=== PATIENT | female | born 1980 | race Caucasian/White ===

== ENCOUNTER → 2017-11-06 15:07 | Outpatient (CLI) | payer OTHER, SELFPAY ==
[2017-11-06 17:08] LABS: Free Thyroxine Index 3.1 ug/dL (5.93-13.13); Thyroid Stimulating Hormone 1.43 uIU/ml (0.358-3.740); Triiodothryronine (T3) Uptake 31 % (31-39)
[2017-11-08 07:18] LABS: Thyroid Peroxidase Antibodies 8 IU/mL (0-34)
[2017-11-09 06:31] LABS: Triiodothyronine (T3) Free 3.8 pg/mL (2.0-4.4)
== END ==
PROVIDERS: Family Provider Family Medicine; PCP Nurse Practitioner Family; Visit Provider Nurse Practitioner Obstetrics & Gynecology
DX: Z01.419 Encounter for gynecological examination (general) (routine) without abnormal findings (principal); R53.83 Other fatigue
CPT/HCPCS: 36415; 84436; 84443; 84479; 84481; 86376

== ENCOUNTER → 2017-12-08 12:53 | Outpatient (CLI) | payer OTHER, SELFPAY ==
--- NOTE | 2017-12-08 12:56 | XR_ITS ---
XR foot wt bearing LT 3V HISTORY: ITS.REASON: pain ORDERING PHYSICIAN: Mely Kelley DPM PATIENT AGE: 37 years COMPARISON: None FINDINGS: No fracture or dislocation. No lytic or blastic change. There is normal mineralization.. The joint spaces are well-preserved. No significant degenerative/arthritic changes. No erosive changes evident. IMPRESSION: Negative, no acute finding
--- NOTE | 2017-12-08 12:56 | XR_ITS ---
XR foot wt bearing RT 3V HISTORY: ITS.REASON: pain ORDERING PHYSICIAN: Mely Kelley DPM PATIENT AGE: 37 years COMPARISON: None FINDINGS: No fracture or dislocation. No lytic or blastic change. There is normal mineralization.. The joint spaces are well-preserved. No significant degenerative/arthritic changes. No erosive changes evident. There is an os navicularis as a normal variant IMPRESSION: Negative, no acute finding
== END ==
PROVIDERS: PCP Family Medicine; Visit Provider Podiatrist
DX: M79.671 Pain in right foot (principal); M79.672 Pain in left foot
CPT/HCPCS: 73630

== ENCOUNTER → 2019-05-09 14:04 | Outpatient (CLI) | payer OTHER, SELFPAY ==
--- NOTE | 2019-05-09 14:19 | XR_ITS ---
PROCEDURE: XR FOOT LT MIN 3V CLINICAL INDICATION: LT FOOT PAIN COMPARISON: FTR2 FOOT-RT-2 VIEWS from 10/21/2014 FTL2 FOOT-LT-2 VIEWS from 10/21/2014 FTWBL3 XR foot wt bearing LT 3V from 12/08/2017 FTWBR3 XR foot wt bearing RT 3V from 12/08/2017 FINDINGS: No fracture or dislocation. No lytic or blastic change. There is normal mineralization. The joint spaces are well-preserved. No significant degenerative/arthritic changes. No erosive changes evident. Other findings:None. IMPRESSION: No acute findings. Dictated by: Gilbert Merida MD 05/09/2019 14:38 Electronically signed by Gilbert Merida MD in [place] 05/09/2019 14:38
== END ==
PROVIDERS: PCP Nurse Practitioner Family; Visit Provider Nurse Practitioner Family
DX: M79.672 Pain in left foot (principal)
CPT/HCPCS: 73630

== ENCOUNTER → 2020-11-06 13:31 | Outpatient (CLI) | payer OTHER, SELFPAY ==
--- NOTE | 2020-11-06 13:36 | XR_ITS ---
PROCEDURE: XR KNEE RT 3V CLINICAL INDICATION: RT KNEE PAIN COMPARISON: CR KNEE3R KNEE-3 VIEWS-RT from 10/21/2014 CR KNEE3L KNEE-3 VIEWS-LT from 10/21/2014 FINDINGS: No fracture or dislocation. No lytic or blastic change. There is normal mineralization. Early osteophyte formation. Mild medial compartment joint space loss. No suprapatellar joint effusion. Soft tissues are unremarkable. IMPRESSION: Early degenerative changes. No acute fractures or dislocations. Dictated by: Claudia Kumar 11/06/2020 16:56 Claudia Kumar in [place] 11/06/2020 16:56
--- NOTE | 2020-11-06 13:36 | XR_ITS ---
PROCEDURE: XR KNEE LT 3V CLINICAL INDICATION: LT KNEE PAIN COMPARISON: CR KNEE3R KNEE-3 VIEWS-RT from 10/21/2014 CR KNEE3L KNEE-3 VIEWS-LT from 10/21/2014 FINDINGS: No fracture or dislocation. No lytic or blastic change. There is normal mineralization. The joint spaces are well-preserved. Early osteophyte formation is noted. No erosive changes evident. Other findings:None. IMPRESSION: Early osteophyte formation. No acute fractures or dislocations. Dictated by: Claudia Kumar 11/06/2020 16:55 Claudia Kumar in [place] 11/06/2020 16:55
== END ==
PROVIDERS: PCP Nurse Practitioner Family; Visit Provider Nurse Practitioner Family
DX: M25.562 Pain in left knee (principal); M25.561 Pain in right knee
CPT/HCPCS: 73562

== ENCOUNTER → 2021-02-11 09:05 | Outpatient (CLI) | payer OTHER, SELFPAY ==
--- NOTE | 2021-02-11 09:11 | XR_ITS ---
PROCEDURE: XR HIP LT 2-3V W/PELVIS CLINICAL INDICATION: LT HIP PAIN COMPARISON: No exams were available for comparison FINDINGS: No fracture or dislocation is evident. No significant degenerative change. No lytic or blastic change. Unremarkable soft tissues. There is a small sclerotic focus overlying the left ilium laterally and may be due to a bone island. IMPRESSION: No acute findings. Dictated by: Gilbert Merida MD 02/11/2021 11:25 Gilbert Merida MD in [place] 02/11/2021 11:25
== END ==
PROVIDERS: PCP Nurse Practitioner Family; Visit Provider Nurse Practitioner Family
DX: M25.552 Pain in left hip (principal)
CPT/HCPCS: 73502

== ENCOUNTER → 2021-03-12 07:58 | Outpatient (CLI) | payer OTHER, SELFPAY ==
--- NOTE | 2021-03-12 08:01 | MR_ITS ---
PROCEDURE: MR HIP LT WO CON CLINICAL INDICATION: LEFT HIP PAIN COMPARISON: CR XR HIP LT 2-3V W/PELVIS from 02/11/2021 TECHNIQUE: Routine multiplanar multi echo sequences are performed without gadolinium enhancement. FINDINGS: The femoral head has unremarkable signal intensity. No evidence of avascular necrosis. There is a small left hip joint effusion.. Small area of decreased T1 and T2 signal is present in the ischium posteriorly and may be due to an incidental bone island corresponding to sclerotic area on the radiograph. Increased T2 signal is present along the greater trochanteric region within the soft tissues and may be related to trochanteric bursitis. There is increased T2 signal surrounding the gluteus minimus tendon. Increased T2 signal is also present within the gluteus medius muscle at the level of the greater trochanter. IMPRESSION: 1. Small left hip joint effusion. 2. Increased T2 signal along the greater trochanteric region, around the insertion of the gluteus minimus tendon, and in the gluteus medius muscle at the level of the greater trochanter. These findings may be related trochanteric bursitis. Recent injection could have a similar appearance. Tenosynovitis of the gluteus minimus tendon is considered. The increased T2 signal in the gluteus medius muscle could be related to recent injection, underlying bursitis, or even muscle injury. Dictated by: Gilbert Merida MD 03/12/2021 12:36 Gilbert Merida MD in [place] 03/12/2021 12:36
== END ==
PROVIDERS: PCP Nurse Practitioner Family; Visit Provider Nurse Practitioner Family
DX: M25.552 Pain in left hip (principal)
CPT/HCPCS: 73721

== ENCOUNTER 2021-05-18 08:00 | Outpatient (RCR) | payer OTHER, SELFPAY | END 2021-05-18 08:05 | disposition home or self-care (01) | LOC: PT 08:00 | PROVIDERS: Visit Provider Nurse Practitioner Family | DX: M70.62 Trochanteric bursitis, left hip (principal); M25.452 Effusion, left hip | CPT/HCPCS: 20560; 97010; 97014; 97033; 97035; 97110; 97140; 97163; 97164; G0283 ==

== ENCOUNTER → 2021-07-10 13:18 | Outpatient (CLI) | payer OTHER, SELFPAY | PROVIDERS: Visit Provider Nurse Practitioner Family | DX: U07.1 COVID-19 (principal) | CPT/HCPCS: C9803; U0003; U0005 ==

== ENCOUNTER → 2022-02-01 10:03 | Outpatient (CLI) | payer OTHER, SELFPAY ==
--- NOTE | 2022-02-01 10:03 | US_ITS ---
FINAL REPORT CLINICAL HISTORY: fibroid uterus, heavy bleeding FINDINGS: Transvaginal sonographic images of the pelvis were obtained. The uterus measures 9.7 x 5.1 x 4.4 cm. The endometrium measures 1 cm, which is within normal limits. The uterus has a lobular contour consistent with fibroid uterus. There are no well-defined separate fibroids. The right ovary measures 2.5 cm in length and left ovary measures 2.9 cm in length. Normal blood flow seen to the ovaries. There is a 1.6 cm cyst in the right ovary. There is no evidence of free fluid. IMPRESSION: Lobular uterine contour consistent with fibroid uterus. 1.6 cm right ovarian cyst. Reviewed, Interpreted and Dictated by Jethro Smith III, MD Transcribed by Paulino Small Authenticated and [facility]
--- NOTE | 2022-02-01 10:03 | MM_ITS ---
PROCEDURE INFORMATION: Exam: MG Bilateral Screening 3D Mammography Exam date and time: 02/01/2022 10:03 AM Age: 41 years old Clinical indication: Screening examination TECHNIQUE: Imaging protocol: Bilateral Screening tomosynthesis and 2D mammography including computer-aided detection (CAD) when performed. COMPARISON: No relevant prior studies available. Baseline FINDINGS: MAMMOGRAPHY: Breast composition: There are scattered areas of fibroglandular density. Mass: None. Architectural distortion: None. Calcifications: No suspicious calcifications. Asymmetric density: None. Skin thickening: None. Axillary adenopathy: None. IMPRESSION: No mammographic evidence of malignancy. Annual screening is recommended unless otherwise clinically indicated. ASSESSMENT: BI-RADS Category 1: Negative
== END ==
LOC: RAD 10:03
PROVIDERS: PCP Nurse Practitioner Family; Visit Provider Nurse Practitioner Obstetrics & Gynecology
DX: Z12.31 Encounter for screening mammogram for malignant neoplasm of breast (principal); D25.9 Leiomyoma of uterus, unspecified; N92.0 Excessive and frequent menstruation with regular cycle
CPT/HCPCS: 76830; 77063; 77067

== ENCOUNTER → 2022-04-27 08:04 | Outpatient (CLI) | payer OTHER, SELFPAY ==
[2022-04-27 08:22] LABS: Basophils # 0.1 K/mm3 (0-0.2); Basophils % 0.8 % (0.1-2.0); Eosinophils # 0.1 K/mm3 (0.0-0.4); Eosinophils % 2.1 % (0.1-12.0); Hemoglobin 13.1 g/dL (12.2-16.2); Lymphocytes # 1.8 K/mm3 (0.7-4.5); Lymphocytes % 25.7 % (10-50); Mean Corpuscular HGB Conc 32.7 g/dL (31.8-35.4); Mean Corpuscular Hemoglobin 29.7 pg (27.0-31.2); Mean Corpuscular Volume 90.8 fl (81-99); Mean Platelet Volume 7.8 fl (7.4-10.4); Monocytes # 0.3 K/mm3 (0.1-1.0); Monocytes % 4.7 % (1.7-9.3); Neutrophils # 4.6 K/mm3 (1.8-7.8); Neutrophils % 66.7 % (37.0-80.0); Platelet Count 215 K/mm3 (142-424); Red Cell Distribution Width 13.1 % (11.5-17.5)
[2022-04-27 09:09] LABS: Alanine Aminotransferase 15 U/L (12-78); Albumin Level 4.4 g/dl (3.5-5.0); Albumin/Globulin Ratio 1.9 (1.1-1.8); Alkaline Phosphatase 81 U/L (38-126); Aspartate Amino Transferase 21 U/L (14-36); Bilirubin,Total 0.6 mg/dl (0.2-1.3); Blood Urea Nitrogen 13 mg/dl (7-17); Calcium 9.5 mg/dl (8.4-10.2); Carbon Dioxide 28 mmol/L (22.0-30.0); Chloride 103 mmol/L (98-107); Estimated Glomerular Filt Rate 137 ml/min (>60); GFR (African American) 165 ML/MIN (>60); Globulin 2.3 g/dL (1.3-3.2); Glucose 82 mg/dl (74-100); Sodium 140 mmol/L (136-145); Total Protein,Serum 6.7 g/dl (6.3-8.2)
[2022-04-27 09:31] LABS: HCG,Quantitative < 2 mIU/ml (0-5.42)
== END ==
LOC: LAB 08:05
PROVIDERS: PCP Nurse Practitioner Family; Visit Provider Nurse Practitioner Obstetrics & Gynecology
DX: R93.89 Abnormal findings on diagnostic imaging of other specified body structures (principal)
CPT/HCPCS: 36415; 80053; 84702; 85025

== ENCOUNTER 2022-04-29 06:08 | Day surgery (SDC) | payer OTHER, SELFPAY ==
[2022-04-26 12:11] VITALS: BMI 34.4
[2022-04-29] VITALS (10 sets, daily range): BP systolic 111–149; BP diastolic 62–100; PULSE 64–89; RESP 16–18; TEMP 36.3–37.1; O2SAT 93–97
--- NOTE | 2022-04-29 07:39 | EXP.ANES.CKL ---
[facility] Medical History Allergies Anxiety History of COVID-19 Lyme disease Surgical History History of section History of cholecystectomy History of tonsillectomy Family History Mother Lung cancer Family history of myocardial infarction Father Family history of myocardial infarction Social History (Updated 04/29/22 @ 06:38 by Juanita Hawk, ODALIS) Smoking Status: Never smoker alcohol intake: never substance use type: denies use current occupational status: employed Travel in the last 8 weeks: None household members: family housing: house [facility] Anesthesia Checklist Patient Identification Patient Identification: Arm Band Structural Data Admitted From: Home Planned Operative Procedure/s: Hysteroscopy, D&C, Novasure Ablation Consent for Planned Operative Procedure(s) Verified: Yes Verified Documents: Surgical Consent and History and Physical NPO Status Verified Time NPO: 00:00 Additional verifications Anesthesia Reactions: No Hx Blood Transfusions: No Blood Transfusion Reaction: No Airway Assessment C-Spine Mobility Assessed: Yes TMJ Mobility Assessed: Yes Dentition: Good Dentition Neurological Assessment Level of Consciousness: Awake and Alert Anesthesia Plan Anesthesia Risk discussed: Yes Anesthesia Plan: Verified ASA Class: II Anesthesia Type: General
--- NOTE | 2022-04-29 08:06 | EXP.ANES.I ---
[facility] Anesthesia Record Part I Anesthesia Record I Intake, IV Amount: 500 Estimated blood loss (mL): 25 Urine output (mL): 0 Blood Products used (#): none Blood Pressure: 149/100 SaO2: 93 Pulse Rate: 89 Respiratory Rate: 16 Temperature: 98.8 F Patient is:: Drowsy and Stable Stable to PACU at:: 08:05
--- NOTE | 2022-04-29 08:11 | P.OP_ITS ---
Date of procedure: 04/29/22 Pre-op Diagnosis:: Menorrhagia Post-op Diagnosis:: Menorrhagia Procedure performed:: Hysteroscopy, D&C, NovaSure ablation Surgeon:: Devin Trivedi MD POSITIVE PRINTER OPERATOR:: Gonzalo Estes Anesthesia: LMA Estimated blood loss (mL): 50 Clinical Note:: She is a 41-year-old lady who complains of extremely heavy periods. Ultrasound was essentially normal. After having discussed the risks and benefits we elected perform a hysteroscopy, D&C and endometrial ablation. Operative findings:: She had a normal-appearing endometrium. The endometrium sounded to 9 cm. The width was 4.5 cm. Operative note:: She was taken to the operating room where LMA anesthesia was found be adequate. She was prepped and draped in the normal sterile fashion in the lithotomy position. A weighted speculum was placed in the vagina and the anterior lip of the cervix was grasped with a tenaculum. The cervix was then dilated to approximately 6 mm. I then inserted a hysteroscope into the uterine cavity and the findings were as previously dictated. I then performed a gentle curettage with a medium curette. I then sounded the uterus and determine the length of the uterus. The length was 9 cm. I then inserted the NovaSure device and determine the width of the endometrial cavity. The endometrial cavity length was 6.5 cm and the width was 3.6 cm. This was placed into the NovaSure device. I then ran the device through its program. I further inspected the endometrial cavity and was found to be incompletely charted. There was very little becky. The endometrium really appeared as it had prior to the procedure. As result of this I elected to redo the endometrial ablation. The endometrium still appeared quite lush and pink. I placed another device within the endometrial cavity and the length was 6 cm. I then further manipulated device and was able to get the width to 4.8 cm. This was then placed into the NovaSure device and I ran the device through its program again. I once again inspected the endometrial cavity and it was found to be completely charred. I then injected 30 cc of 0.5% ropivacaine at the 3:00, 5:00, 7:00, and 9:00 positions of the cervix. She tolerated procedure well and was taken to the recovery room in excellent condition. All sponge and instrument counts were correct. The estimated blood loss was less than 50 cc. Condition: stable Disposition: PACU Specimens:: Endometrial curettings Complications:: None
--- NOTE | 2022-04-29 08:37 | PC.NURSE ---
0809-detailed report called to TomekaRN 0835-pt transported to post op via stretcher w/belgica rails up and left in care of ODALIS Grullon with bed locked in lowest position, vss, pt stable, additional bedside report given
--- NOTE | 2022-04-29 13:21 | P.PNANES_ITS ---
[facility] Anesthesia Record Part II Anesthesia Record Part II Discharge Time: 08:35 Destination: Surgical Day Care (OP Surgery) PACU nurse assessment reviewed?: Yes Patient Condition:: Good Anesthesia Complications:: None Swallowing reflex intact?: Yes Cyanosis?: No Blood Pressure: 128/89 Pulse Rate: 68 Temperature: 97.6 F Mental Status: Alert & Oriented Pain level:: 0 Nausea and/or vomitting:: None Intake, IV Amount: 0
== END 2022-04-29 09:05 | disposition home or self-care (01) ==
PROVIDERS: PCP Nurse Practitioner Family; Visit Provider Nurse Practitioner Obstetrics & Gynecology
PROC: 0U5B8ZZ Destruction of Endometrium, Via Natural or Artificial Opening Endoscopic (ICD-10-PCS; CPT 58563; principal; 2022-04-29 07:30)
DX: N92.0 Excessive and frequent menstruation with regular cycle (principal); R93.89 Abnormal findings on diagnostic imaging of other specified body structures; Z79.899 Other long term (current) drug therapy
CPT/HCPCS: 58563; 96374; J2405

== ENCOUNTER → 2022-05-03 07:17 | Outpatient (CLI) | payer SELFPAY ==
--- NOTE | 2022-05-03 07:17 | CT_ITS ---
FINAL REPORT CLINICAL HISTORY: . screening for heart disease FINDINGS: CT CORONARY CALCIUM SCORE W/O TECHNIQUE: Thin-section axial images were obtained through the heart and coronary arteries per CT coronary calcium score protocol. This study was performed with techniques to keep radiation doses as low as reasonably achievable (ALARA). Individualized dose reduction techniques using automated exposure control or adjustment of mA and/or kV according to the patient's size were employed. FINDINGS: On the axial images, there is no significant calcification. This gives a coronary artery calcium score of 0.0 based on the Agatston scale. This coronary artery calcium score places the patient within the 0 percentile based on age and gender. The heart size is normal. There is no pleural or pericardial effusion. Limited evaluation of the lungs reveal a 4 mm noncalcified nodule in the posterior left upper lobe consistent with a Fleischner 1. IMPRESSION: 0 percentile.. Reviewed, Interpreted and Dictated by Jax Dove MD Transcribed by Paulino Small Authenticated and . [facility]
== END ==
PROVIDERS: PCP Nurse Practitioner Family; Visit Provider Physician Assistant
DX: Z13.6 Encounter for screening for cardiovascular disorders (principal); Z82.49 Family history of ischemic heart disease and other diseases of the circulatory system
CPT/HCPCS: 75571

== ENCOUNTER → 2022-05-13 13:58 | Outpatient (CLI) | payer OTHER, SELFPAY | LOC: RT 13:59 | PROVIDERS: PCP Nurse Practitioner Family; Visit Provider Physician Assistant | DX: E66.9 Obesity, unspecified (principal); Z82.49 Family history of ischemic heart disease and other diseases of the circulatory system; Z86.79 Personal history of other diseases of the circulatory system; Z68.34 Body mass index [BMI] 34.0-34.9, adult | CPT/HCPCS: 93306 ==

== ENCOUNTER → 2022-05-27 14:08 | Outpatient (CLI) | payer OTHER, SELFPAY ==
--- NOTE | 2022-05-27 | CA_ITS ---
APPROVED REPORT Exam: Exercise Treadmill Technologist: Liz Santiago, Ht: 5 ft 4 in Wt: 201 lbs BSA: 1.96 m2 HR: 72 bpm BP: 129/83 mmHg Rhythm: NSR Medical History Medications: Escitalopram,,,,, Vit D3,,,,, Oxalate,,,,, Allergies: No known drug allergies Cardiac Risk Factors: FHX of CAD Stress Test Details Test: [place], Exercise stress testing was performed using a modified [place]ell protocol. HR Resting HR: 73 bpm Max Heart Rate (APMHR): 180.440263 bpm Max HR Achieved: 189 bpm Target HR (85% APMHR): 153.005722 bpm % of APMHR: 105.00 Recovery HR: 105 bpm BP Resting BP: 129/83 mmHg Max BP: 156/90 mmHg Recovery BP: 152.0/74.0 mmHg ECG Resting ECG: NSR Clinical Reason for Termination: Dyspnea Leg Pain Exercise duration: 07:02 min Highest Stage Achieved: Exercise capacity: 10.1 METs Stress ECG Conclusion PT WALKED 7 MINUTES 10.1 METS MAX HR: 189 MAX B/P: 156/90 METS:10.1 TEST STOPPED DUE TO: SOA, LEG ACHES NO CP <1.[address] SEGMENT CHANGES NEGATIVE STRESS. SEE ECHO Test Summary REST . . . . . . . Sitting REST 05:29 0.0 1.2 73 . 129/ 83 . . Stage 1 01:00 10.0 1.7 104 . . . . Stage 1 02:00 10.0 1.7 119 . 140/ 80 . . Stage 1 03:00 10.0 1.7 122 . 140/ 80 . . Stage 2 01:00 12.0 2.5 144 . . . . Stage 2 02:00 12.0 2.5 157 . . . . Stage 2 03:00 12.0 2.5 172 . 156/ 90 . . Stage 3 01:00 14.0 3.1 188 . . . . Stage 3 01:02 14.0 0.0 188 . . . Stop exercise at 07:02 RECOVERY 01:00 0.0 0.0 139 . . . . RECOVERY 02:00 0.0 0.0 108 . . . . RECOVERY 03:00 0.0 0.0 108 . . . . RECOVERY 04:00 0.0 0.0 103 . 152/ 74 . . RECOVERY 05:00 0.0 0.0 93 . 152/ 74 . . RECOVERY 06:00 0.0 0.0 97 . 152/ 74 . . RECOVERY 07:00 0.0 0.0 0 . 152/ 74 . . RECOVERY 07:54 0.0 0.0 0 . 152/ 74 . . Electronically signed by : Jian Carrillo MD 05/27/2022 15:47:35
--- NOTE | 2022-05-27 14:13 | CA_ITS ---
APPROVED REPORT EXAM: Comprehensive 2D, Doppler, and color-flow Echocardiogram Drilling Engineering Manager: Lynne Linares RVT Ht: 5 ft 4 in Wt: 202lbs BSA: 1.96 BP: 132/86 mmHg Indications: MURMUR,FAMILY HX HD Stress Test Details HR Max Heart Rate (APMHR): 180.440137 bpm Target HR (85% APMHR): 153.100744 bpm BP ECG Conclusion 1. The EKG portion of the exercise stress echo is negative for ischemia, patient has good exercise capacity of 10.1 METs of workload on treadmill, the blood pressure response to exercise was adequate, there was no exercise-induced chest discomfort. 2. Normal left ventricular size and function with no regional wall motion abnormality at rest. 3. With exercise there is increase in contractility of all the segments of the myocardium with hyperdynamic left ventricular systolic response, no obvious regional wall motion abnormality to suggest underlying ischemic heart disease. 4. Normal exercise stress echo. Electronically signed by : Jian Carrillo MD 05/27/2022 15:48:47
== END ==
LOC: RT 14:09
PROVIDERS: PCP Nurse Practitioner Family; Visit Provider Physician Assistant
DX: Z82.49 Family history of ischemic heart disease and other diseases of the circulatory system (principal); Z86.79 Personal history of other diseases of the circulatory system; E66.9 Obesity, unspecified; Z68.35 Body mass index [BMI] 35.0-35.9, adult
CPT/HCPCS: 93017; 93350

== ENCOUNTER → 2023-04-07 14:05 | Outpatient (CLI) | payer OTHER, SELFPAY ==
--- NOTE | 2023-04-07 14:06 | US_ITS ---
PROCEDURE: US TRANSVAGINAL CLINICAL INDICATION: left sided pelvic pain COMPARISON: US US TRANSVAGINAL from 02/01/2022 FINDINGS: Transabdominal sonographic images of the pelvis were obtained. UTERUS: 9.9 cm x 6.2 cmx 4.9 cm, post ablation changes and the endometrium not well visualized. There is a 7.5 mm x 7.5 mm cystic area in the endometrial cavity. A scar is seen. There are multiple small nabothian cysts in the cervix. LEFT OVARY: 3.3 cmx1.8 cmx2.5cm with a volume of 7.4ml. There is a 9 mm follicle in the left ovary. RIGHT OVARY: 4.1 cm x 3.1 cmx2.3 cm with a volume of 15.5ml. There are two prominent follicles. Follicle 1. Measures 1.5 cm x 1.7 cm x 2.3 cm. Follicle 2. Measures 1.8 cm x 1.6 cm x 2.2 cm. Both ovaries are seen and appear normal. Doppler flow to both ovaries are seen. There is no fluid in the cul-de-sac. IMPRESSION: 1. Anteverted uterus slightly enlarged in size. Post ablation changes are seen. 2. Both ovaries are seen and appear normal. There are prominent follicles on each ovary. 3. No fluid in the cul-de-sac. Dictated by: Devin Trivedi MD 04/08/2023 11:16 Devin Trivedi MD in [place] 04/08/2023 11:16
== END ==
LOC: RAD 14:06
PROVIDERS: PCP Nurse Practitioner Family; Visit Provider Nurse Practitioner Family
DX: R10.2 Pelvic and perineal pain (principal)
CPT/HCPCS: 76830

== ENCOUNTER → 2023-05-26 13:27 | Outpatient (CLI) | payer OTHER, SELFPAY ==
--- NOTE | 2023-05-26 13:28 | MM_ITS ---
PROCEDURE INFORMATION: Exam: MG Bilateral Screening 3D Mammography Exam date and time: 05/26/2023 1:26 PM Age: 42 years old Clinical indication: Screening mammogram TECHNIQUE: Imaging protocol: Bilateral Screening tomosynthesis and 2D mammography including computer-aided detection (CAD) when performed. COMPARISON: MG MM DIG SCREENING MAMM BI W/CAD 02/01/2022 10:03 AM FINDINGS: MAMMOGRAPHY: Breast composition: There are scattered areas of fibroglandular density. Mass: None. Architectural distortion: No new or suspicious architectural distortion. Calcifications: No new or suspicious calcifications are present Asymmetric density: No new or suspicious asymmetric density is present Skin thickening: None. Axillary adenopathy: None. IMPRESSION: No mammographic evidence of malignancy. Recommend annual screening mammography unless otherwise clinically indicated. ASSESSMENT: BI-RADS category 1: Negative
== END ==
PROVIDERS: PCP Nurse Practitioner Family; Visit Provider Obstetrics & Gynecology
DX: Z12.31 Encounter for screening mammogram for malignant neoplasm of breast (principal)
CPT/HCPCS: 77063; 77067

== ENCOUNTER 2024-03-04 14:53 | Outpatient (CLI) | payer OTHER, SELFPAY ==
[2024-03-04 13:52] LABS: Basophils # 0.1 K/mm3 (0-0.2); Basophils % 0.8 % (0.1-2.0); Eosinophils # 0.1 K/mm3 (0.0-0.4); Eosinophils % 1.6 % (0.1-12.0); Hematocrit 44.9 % (37.0-47.0); Lymphocytes % 30.7 % (10-50); Mean Corpuscular HGB Conc 31.1 g/dL (31.8-35.4); Mean Corpuscular Hemoglobin 29.5 pg (27.0-31.2); Mean Corpuscular Volume 94.8 fl (81-99); Mean Platelet Volume 8.5 fl (7.4-10.4); Monocytes # 0.3 K/mm3 (0.1-1.0); Monocytes % 5.2 % (1.7-9.3); Neutrophils % 61.7 % (37.0-80.0); Platelet Count 226 K/mm3 (142-424); Red Blood Count 4.73 M/mm3 (4.20-5.40); Red Cell Distribution Width 13.4 % (11.5-17.5); White Blood Count 6.5 K/mm3 (4.8-10.8)
[2024-03-04 15:15] LABS: T4 (Thyroxine) 10.7 ug/dl (5.53-11.0)
[2024-03-04 15:29] LABS: Thyroid Stimulating Hormone 0.68 uIU/mL (0.465-4.68)
[2024-03-04 15:48] LABS: Vitamin B12 680 pg/mL (239-931)
[2024-03-04 18:05] LABS: Ferritin 34.7 ng/ml (6.24-137)
[2024-03-05 11:13] LABS: C-Peptide 2.6 ng/mL (1.1-4.4); FSH 3.8 mIU/mL (.); Insulin Level Total 11.6 uIU/mL (2.6-24.9); LH 5.2 mIU/mL (.); Progesterone 10.2 ng/mL (.); Thyroid Peroxidase Antibodies <9 IU/mL (0-34); Triiodothyronine (T3) Free 3.1 pg/mL (2.0-4.4)
[2024-03-05 17:10] LABS: Thyroglobulin Level <1.0 IU/mL (0.0-0.9)
[2024-03-10 18:42] LABS: Free Testosterone (Direct) < 0.2 pg/mL (0.0-4.2); Testosterone, Total, LC/MS 14.9 ng/dL (.)
[2024-03-14 16:07] LABS: Antinuclear Antibodies (ANA) Negative
== END 2024-03-04 23:59 | disposition home or self-care (01) ==
LOC: LAB.DROPOF 14:53
PROVIDERS: PCP Nurse Practitioner Family; Visit Provider Nurse Practitioner Family
DX: N92.6 Irregular menstruation, unspecified (principal); R53.83 Other fatigue; R63.5 Abnormal weight gain; D64.9 Anemia, unspecified; R79.89 Other specified abnormal findings of blood chemistry; Z68.35 Body mass index [BMI] 35.0-35.9, adult
CPT/HCPCS: 84402; 84403; 82306; 82607; 82670; 82728; 83001; 83002; 83525; 84144; 84436; 84443; 84481; 84681; 85025; 86038; 86225; 86235; 86376; 86800

== ENCOUNTER 2024-03-06 11:34 | Outpatient (CLI) | payer OTHER, SELFPAY ==
[2024-03-06 17:52] LABS: Adenovirus,PCR Not Detected (NotDetected); Bordetella Pertussis Not Detected (NotDetected); Chlamydophila Pneumoniae, PCR Not Detected (NotDetected); Coronavirus 19, PCR Not Detected (NotDetected); Coronavirus 229E Not Detected (NotDetected); Coronavirus NL63 Not Detected (NotDetected); Coronavirus OC43 Not Detected (NotDetected); Coronovirus HKU1,PCR Not Detected (NotDetected); Human Metapneumovirus Not Detected (NotDetected); Influenza A, PCR Not Detected (NotDetected); Influenza AH1, 2009 Not Detected (NotDetected); Influenza AH1, PCR Not Detected (NotDetected); Influenza AH3,PCR Not Detected (NotDetected); Influenza B, PCR Not Detected (NotDetected); Mycoplasma Pneumoniae, PCR Not Detected (NotDetected); Parainfluenza 1, PCR Not Detected (NotDetected); Parainfluenza 2, PCR Not Detected (NotDetected); Parainfluenza 3, PCR Not Detected (NotDetected); Parainfluenza 4, PCR Not Detected (NotDetected); Respiratory Syncytial Virus Not Detected (NotDetected); Rhinovirus/Enterovirus Not Detected (NotDetected)
== END 2024-03-06 23:59 | disposition home or self-care (01) ==
LOC: LAB.DROPOF 03-07 09:23
PROVIDERS: PCP Nurse Practitioner Family; Visit Provider Nurse Practitioner Family
DX: J02.9 Acute pharyngitis, unspecified (principal); J06.9 Acute upper respiratory infection, unspecified
CPT/HCPCS: 87070; 87265; 87486; 87581; 87632; 87635

== ENCOUNTER 2024-03-22 08:49 | Outpatient (CLI) | payer OTHER, SELFPAY ==
[2024-03-22 17:10] LABS: Influenza A, PCR Not Detected (NotDetected); Influenza B, PCR Not Detected (NotDetected)
[2024-03-22 18:09] LABS: Coronavirus 19, PCR Detected (NotDetected)
== END 2024-03-22 23:59 | disposition home or self-care (01) ==
LOC: LAB.DROPOF 03-25 08:50
PROVIDERS: PCP Student in an Organized Health Care Education/Training Program; Visit Provider Student in an Organized Health Care Education/Training Program
DX: U07.1 COVID-19 (principal)
CPT/HCPCS: 87636

== ENCOUNTER 2024-06-17 10:09 | Outpatient (CLI) | payer OTHER, SELFPAY ==
[2024-06-17 18:58] LABS: Coronavirus 19, PCR Not Detected (NotDetected); Influenza A, PCR Not Detected (NotDetected); Influenza B, PCR Not Detected (NotDetected)
== END 2024-06-17 23:59 | disposition home or self-care (01) ==
LOC: LAB.DROPOF 06-18 10:09
PROVIDERS: PCP Student in an Organized Health Care Education/Training Program; Visit Provider Student in an Organized Health Care Education/Training Program
DX: R50.9 Fever, unspecified (principal); R05.9 Cough, unspecified
CPT/HCPCS: 87636

== ENCOUNTER 2024-10-08 08:09 | Outpatient (CLI) | payer OTHER, SELFPAY ==
--- NOTE | 2024-10-08 08:30 | MM_ITS ---
PROCEDURE INFORMATION: Exam: MG Bilateral Screening 3D Mammography Exam date and time: 10/08/2024 8:35 AM Age: 44 years old Clinical indication: Screening examination. TECHNIQUE: Imaging protocol: Bilateral Screening tomosynthesis and 2D mammography including computer-aided detection (CAD) when performed. COMPARISON: 1. MG MM DIG SCREENING MAMM BI W/CAD 05/26/2023 1:26 PM 2. MG MM DIG SCREENING MAMM BI W/CAD 02/01/2022 10:03 AM FINDINGS: MAMMOGRAPHY: Breast composition: There are scattered areas of fibroglandular density. Mass: None. Architectural distortion: None. Calcifications: No suspicious calcifications. Asymmetric density: None. Skin thickening: None. Axillary adenopathy: None. IMPRESSION: No mammographic evidence of malignancy. Annual screening is recommended unless otherwise clinically indicated. ASSESSMENT: BI-RADS Category 1: Negative.
== END 2024-10-08 23:59 | disposition home or self-care (01) ==
LOC: RAD 08:10
PROVIDERS: PCP Nurse Practitioner Family; Visit Provider Obstetrics & Gynecology
DX: Z12.31 Encounter for screening mammogram for malignant neoplasm of breast (principal)
CPT/HCPCS: 77063; 77067

== ENCOUNTER 2024-11-10 09:47 | Emergency (ER) | payer OTHER, SELFPAY ==
--- NOTE | 2024-11-10 10:09 | ECG_ITS ---
APPROVED REPORT Exam: Resting ECG HR:63 bpm ECG Measurements Heart Rate 63 AXES PA 152 P -24 QRSd 80 QRS 58 QT 369 T 52 QTc 375 Conclusion SINUS RHYTHM LOW QRS VOLTAGE IN PRECORDIAL LEADS [QRS DEFLECTION < 1.0 mV IN CHEST LEADS] BORDERLINE ECG UNCONFIRMED REPORT Electronically signed by : Joseph Zhao, 11/10/2024 16:04:42
[2024-11-10 10:12] VITALS: BP 154/88; PULSE 64; RESP 18; TEMP 37.1; O2SAT 98; BMI 34.3
[2024-11-10 10:46] VITALS: BP 148/91; PULSE 71; RESP 15; O2SAT 98
--- NOTE | 2024-11-10 11:11 | HMH.EDGENADL ---
Discharge Plan Disposition Patient Disposition: Home, Self-Care Prescriptions Prescriptions: New cyclobenzaprine 10 mg tablet 10 mg PO TID PRN (Reason: muscle spasm) 5 Days Qty: 15 0RF lidocaine 4 % adhesive patch,medicated 1 patch topical DAILY Qty: 5 0RF Rx Instructions: may leave on for up to 12 hrs naproxen 500 mg tablet 500 mg PO BID PRN (Reason: pain) 7 Days Qty: 14 0RF No Action benzonatate 100 mg capsule 100 mg PO BID PRN (Reason: cough) Qty: 20 0RF Referrals Follow up/Referrals: Randi Sun APRN [Primary Care Provider] - See instructions Activity Restrictions/Add. Instructions Additional Instructions/Restrictions: As discussed your symptoms are not consistent with an acute cardiopulmonary emergency but if you develop any shortness of breath elevated heart rate high fevers or other concerns please return to the emergency department. Working diagnosis is a paraspinal muscular strain likely secondary to your recent shoulder/back workout. Please return with any significant worsening of your symptoms. Clinical Impressions Clinical Impression: Strain of thoracic paraspinal muscles excluding T1 and T2 levels Print Language Print Language: Yoruba Discharge ED Provider: Yanique Zhao General Adult HPI General Chief complaint: Extremity Injury, Upper Stated complaint: Pain L shouler, no accident, x 3 days Time Seen by Provider: 11/10/24 10:55 Mode of Arrival: Ambulatory Source of Information: Patient Description of Symptoms (Recalled from ER Triage Doc. by RN): reports left shoulder pain. states she feels like something is pulling on her shoulder. worked out on monday. denies other possible injury History of Present Illness HPI narrative: 44-year-old female presents with what she describes as left shoulder discomfort. When asked to further articulate the location of her symptoms she states that it is just above and medial to her left shoulder blade. She recently started going back to the gym and was doing low rows as well as shoulder exercises on Monday symptoms began a few days later. Worse with movement touch she did feel some improvement with the massage. She states she has a pulling sensation in her left upper extremity. Denies any burning or [id number] type sensation denies any shortness of breath denies any chest pain or exertional symptoms. No lower extremity swelling hemoptysis etc. No history of DVT or PE she is not on any contraceptives. Related Data Previous Rx's ?Medication ?Instructions ?Recorded benzonatate 100 mg capsule 100 mg PO BID PRN cough #20 caps 06/17/24 cyclobenzaprine 10 mg tablet 10 mg PO TID PRN muscle spasm 5 11/10/24 days #15 tabs lidocaine 4 % topical patch 1 patch topical DAILY #5 ea 11/10/24 naproxen 500 mg tablet 500 mg PO BID PRN pain 7 days #14 11/10/24 tabs Allergies Allergy/AdvReac Type Severity Reaction Status Date / Time No Known Allergies Allergy Verified 06/17/24 08:43 [facility] Disclaimer: The information contained in this section may have been updated after the patient was seen, as this information can be updated by other users. Medical History History of COVID-19 Anxiety Lyme disease Allergies Surgical History H/O tubal ligation History of hysteroscopy S/P dilatation and curettage History of tonsillectomy History of cholecystectomy History of section Family History Mother Lung cancer Family history of myocardial infarction Father Family history of myocardial infarction Social History Smoking Status: Never smoker alcohol intake: never substance use type: denies use current occupational status: employed Travel in the last 8 weeks?: None household members: family housing: house Have you lived/traveled outside [place] in past 30 days?: No Contact w/someone who lives/traveled outside [place] past 30 days?: No Exposure to someone with infectious disease in past 14 days?: No Do you have a fever (greater than 100.4 F or 38 C)?: No Have you tested positive for COVID-19?: No Exposed to someone with COVID-19 in past 14 days?: No Do you have a sore throat?: No Do you have a cough?: No Do you have any weakness?: No Do you have any diarrhea?: No Are you experiencing any unusual bleeding?: No Do you have any muscle aches/pain?: Yes Do you have any abdominal pain?: No Are you experiencing loss of taste or smell?: No Other Medical History Have you received the Flu Vaccine for this season: No Have you received the Pneumonia Vaccine: No ROS Obtained: Yes All systems reviewed & no additional complaints except as documented Physical Exam General General appearance: alert and in no apparent distress Respiratory Respiratory exam: Present normal lung sounds bilaterally Cardiovascular Cardiovascular exam: Present regular rate and normal rhythm Back Exam Back 1 view image: 1. Tenderness to palpation neurovascular exam is normal cardiopulmonary exam is normal in this region no skin change Neurological Exam Neurological exam: Present alert and oriented X3 Medical Decision Making Medical Records Screening: Per USPSTF and CDC recommendations, given the prevalence of disease in our region, it is our hospital?s policy to screen for HIV and viral Hepatitis for all patients aged 18 and over and those with ongoing risk factors. Da Inquiry Pt receiving controlled substance: No Vital Signs: 11/10/24 10:12 11/10/24 10:46 Temperature 98.8 F Temperature Source Oral Pulse Rate 71 Pulse Rate [Right] 64 Respiratory Rate 18 15 Blood Pressure 148/91 H Blood Pressure [Right Arm] 154/88 H Blood Pressure Mean [Right Arm] 110 02 Sat by Pulse Oximetry 98 98 Oxygen Delivery Method Room Air Room Air Orders (Tests/Meds): ED MEDICATIONS Generic Name Dose Route Start Last Admin Trade Name Freq PRN Reason Stop Dose Admin Cyclobenzaprine HCl 10 mg 11/10/24 11:07 Cyclobenzaprine 10mg Tablet PO 11/10/24 11:08 ONCE ONE Ketorolac Tromethamine 30 mg 11/10/24 11:07 Ketorolac 30mg/Ml Vial IM 11/10/24 11:08 ONCE ONE Lidocaine 1 each 11/10/24 11:07 Lidocaine 5% Transdermal Patch TD 11/10/24 11:08 ONCE ONE ORDERS Category Date Time Status HIV Combo Stat Lab 11/10/24 10:15 Ordered Hepatitis C Ab Qual. W/ RFX Stat Lab 11/10/24 10:15 Ordered Medical Decision Narrative: 44-year-old above history and physical normal neurovascular and cardiovascular exam. She is PERC negative this is not consistent with a pulmonary embolism. She has no acute cardiopulmonary symptoms namely any exertional symptoms to warrant any further workup from that standpoint she has a normal bilateral lower extremity exam I do not suspect given the symptoms that she is having that this is an aortic dissection etc. She had symptoms that began after recent reinitiation of working out including low rows and shoulder workouts which certainly could explain the localization of her symptoms. Symptoms are worse with movement and touch further suggesting that this is musculoskeletal in nature. I did discuss with her her concerns about a possible pulmonary embolism as she was looking this up online and discussed with her the pulmonary embolism rule out criteria I did offer her a workup but told her that it is really unlikely with her symptoms that that is the case. We shared decision-making we opted not to pursue any further evaluation but I did give her return precautions including shortness of breath pleuritic chest pain fevers elevated heart rate etc. Symptomatic medications have been prescribed to her here as well as to go home with and she was discharged in stable condition with strict return precautions emphasized. Working diagnosis musculoskeletal strain. Critical Care Critical Care Time Critical Care Time: No
[2024-11-10] MEDS: CYCLOBENZAPRINE 10MG TABLET 10 MG PO (11:23)
[2024-11-10] MEDS: LIDOCAINE 5% TRANSDERMAL PATCH 1 EACH TD (11:24)
[2024-11-10] MEDS: KETOROLAC 30MG/ML VIAL 30 MG IM (11:24)
[2024-11-10 11:30] VITALS: BP 148/79; PULSE 80; RESP 20; TEMP 36.8; O2SAT 98
== END 2024-11-10 11:31 | disposition home or self-care (01) ==
PROVIDERS: Emergency Provider Student in an Organized Health Care Education/Training Program; PCP Nurse Practitioner Family
DX: S29.012A Strain of muscle and tendon of back wall of thorax, initial encounter (principal); M25.512 Pain in left shoulder; X50.0XXA Overexertion from strenuous movement or load, initial encounter
CPT/HCPCS: 93005; 96372; 99283; J1885

== ENCOUNTER 2024-11-13 08:09 | Outpatient (CLI) | payer OTHER, SELFPAY ==
--- NOTE | 2024-11-13 08:13 | XR_ITS ---
FINAL REPORT CLINICAL HISTORY: Left posterior shoulder pain COMPARISON: None FINDINGS: LEFT SHOULDER Three views of the left shoulder were obtained. There is no acute fracture or dislocation. Visualized joint spaces are normally aligned. Soft tissues are unremarkable. IMPRESSION: No acute bony abnormality. Reviewed, Interpreted and Dictated by Chava Forrester MD Transcribed by Sydney Oseguera Authenticated and [facility]
--- NOTE | 2024-11-13 08:13 | XR_ITS ---
FINAL REPORT CLINICAL HISTORY: Left posterior shoulder pain COMPARISON: None FINDINGS: Three views of the thoracic spine were obtained. There is no fracture present. There is no vertebral anomaly. There are no significant degenerative changes. There is minimal S-shaped scoliosis. Dextroscoliosis of the upper thoracic spine measures 8 degrees. IMPRESSION: Minimal scoliosis. Reviewed, Interpreted and Dictated by Chava Forrester MD Transcribed by Sydney Oseguera Authenticated and [facility]
== END 2024-11-13 23:59 | disposition home or self-care (01) ==
LOC: RAD 08:11
PROVIDERS: PCP Nurse Practitioner Family; Visit Provider Nurse Practitioner Family
DX: M41.84 Other forms of scoliosis, thoracic region (principal); M25.512 Pain in left shoulder; S29.012A Strain of muscle and tendon of back wall of thorax, initial encounter
CPT/HCPCS: 72072; 73030

== ENCOUNTER → 2024-11-26 08:43 | Outpatient (RCR) | payer OTHER, SELFPAY ==
--- NOTE | 2024-11-27 09:17 | HMH.OTOPEV ---
OT Inpatient Evaluation Rehab OT Outpatient Eval Start: 11/26/24 09:20 Freq: Status: Active Protocol: Document 11/26/24 09:21 JIA (Rec: 11/26/24 13:14 JIA [id number]) E-signed By Mercedes Tellez, OT Outpatient Therapy Subjective History Subjective History Pt presents as a pleasant 44 year old female referred to occupational therapy for skilled evaluation due to shoulder and neck pain. Upon OT arrival to room, pt was holding LUE up with RUE and stated she was trying to relieve pain. She frequently supported neck with RUE t/ o session. Pt reports overall functional skills have been negatively impacted by her neck and L shoulder pain. She comments, I know this is all coming from my neck and my chiropractor agrees. Pt identified her date of onset being approximately 3 weeks ago. She awoke with severe pain in upper chest/back. She went to work and pain continued to worsen. Pt went to [facility] ER where an EKG was performed. No other imaging completed at that time. She was prescribed a muscle relaxer and Naproxen, as well as a Toradol injection, which did not reduce pain. The following day she saw her PCP and was put on steroids, again with no relief. X-Ray negative. She was seen by chiropractor approximately one week later and was told cervical problems were causing her pain. Pt states that PLOF was totally independent with all activities. She currently has stiffness and decreased ROM in cervical region upon clinical observation and UE AROM noted to be WNL. Pt is right hand dominant. 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 She uses RUE to perform tasks when possible and has increased pain when rotating and extending neck. New diagnosis of No cancer in past 12 months? Chief Complaint Pain,Spasms,Stiff,Gives out/Unstable,Paresthesia, Weakness,Decreased Route Jumper Strength Symptom Type Ache,Dull,Burning,Numbness,Tingling,Shooting Symptoms Relieved By Heat Symptoms Aggravated Bending/Stooping,Physical Activity,Lifting By Prior Functional None Limitations Current Functional Reaching,Lifting,Housework,Desk Work/Reading,Driving, Limitations Sleeping,Recreation Activity,Bending/Stooping Level of pain today 6 (0-10) Pain scale - at its 6 best (0-10) Pain scale - at its 9 worst (0-10) Shoulder/Elbow Eval Shoulder Objective Measurements Shoulder ROM Left Shoulder ROM Pain Limitations Shoulder Abduction 170 Active Range of Motion (degrees) Shoulder Flexion 172 Active Range of Motion (degrees) Query Text: Shoulder External 95 Rotation Active Range of Motion ( degrees) Shoulder Internal 82 Rotation Active Range of Motion ( degrees) Shoulder MMT Shoulder Abduction 4- Good- Strength Grade Shoulder Flexion 4 Good Strength Grade Shoulder Horizontal 4- Good- Abduction Strength Grade Shoulder Horizontal 4 Good Adduction Strength Grade Shoulder External 4- Good- Rotation Strength Grade Shoulder Internal 4 Good Rotation Strength Grade Elbow Objective Measurements QuickDASH Activities Please rate your ability to do the following activities in the last week by selecting the number below the appropriate response. 1. Open a tight or No difficulty new jar. 2. Do heavy Mild difficulty crusher feeder (e. g., wash bailon, floors). 3. Carry a shopping No difficulty bag or briefcase. 4. Wash your back. Mild difficulty 5. Use a knife to No difficulty cut food. 6. Recreational Mild difficulty activities in which you take some force or impact through your arm, shoulder, or hand (e.g., golf, hammering, tennis, etc.). 7. During the past Not at all week, to what extent has your arm, shoulder or hand problem interfered with your normal social activities with family, friends , neighbors or groups? 8. During the past Slightly limited week, were you limited in your work or other regular daily activites as a result of your arm, shoulder or hand problem? 9. Arm, shoulder or Mild hand pain. 10. Tingling (pins None and needles) in your arm, shoulder or hand. 11. During the past Mild difficulty week, how much difficulty have you had sleeping because of the pain in your arm, shoulder or hand? Quick DASH 17 OT Outpatient Assessment Impairments Problems/Impairments Impaired Strength,Impaired Endurance,Impaired Lifting, Impaired Household Care,Impaired Work Activities, Impaired Self Care/Self Management Prognosis Rehab Potential Innapropriate for Skilled Therapy Comment Recommend pt be referred to PT for cervical evaluation. Clinical Impression Consistent with No Diagnosis Outpatient Therapy Plan of Care Addendums This patient is a No candidate for social or vocational rehab ? Patient/Guardian Yes verbally acknowledges understanding of treatment program and consents to further treatment? Patient/Guardian Yes verbally acknowledges understanding of diagnosis, prognosis and goals for treatment? Eval Complexity OT Charge [id number] - Moderate Complexity PHYSICIAN CERTIFICATION: I certify the specified therapy services for Anna Kruegere are required, authorized, and reviewed every 30 days.
--- NOTE | 2024-11-27 10:20 | HMH.OTOPEV ---
OT Inpatient Evaluation Rehab OT Outpatient Eval Start: 11/26/24 09:20 Freq: Status: Active Protocol: Document 11/26/24 09:21 JIA (Rec: 11/26/24 13:14 JIA [id number]) E-signed By Mercedes Tellez, OT Outpatient Therapy Subjective History Subjective History Pt presents as a pleasant 44 year old female referred to occupational therapy for skilled evaluation due to shoulder and neck pain. Upon OT arrival to room, pt was holding LUE up with RUE and stated she was trying to relieve pain. She frequently supported neck with RUE t/ o session. Pt reports overall functional skills have been negatively impacted by her neck and L shoulder pain. She comments, I know this is all coming from my neck and my chiropractor agrees. Pt identified her date of onset being approximately 3 weeks ago. She awoke with severe pain in upper chest/back. She went to work and pain continued to worsen. Pt went to [facility] ER where an EKG was performed. No other imaging completed at that time. She was prescribed a muscle relaxer and Naproxen, as well as a Toradol injection, which did not reduce pain. The following day she saw her PCP and was put on steroids, again with no relief. X-Ray negative. She was seen by chiropractor approximately one week later and was told cervical problems were causing her pain. Pt states that PLOF was totally independent with all activities. She currently has stiffness and decreased ROM in cervical region upon clinical observation and UE AROM noted to be WNL. Pt is right hand dominant. 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 She uses RUE to perform tasks when possible and has increased pain when rotating and extending neck. New diagnosis of No cancer in past 12 months? Chief Complaint Pain,Spasms,Stiff,Gives out/Unstable,Paresthesia, Weakness,Decreased Cnc Machine Setter Strength Symptom Type Ache,Dull,Burning,Numbness,Tingling,Shooting Symptoms Relieved By Heat Symptoms Aggravated Bending/Stooping,Physical Activity,Lifting By Prior Functional None Limitations Current Functional Reaching,Lifting,Housework,Desk Work/Reading,Driving, Limitations Sleeping,Recreation Activity,Bending/Stooping Level of pain today 6 (0-10) Pain scale - at its 6 best (0-10) Pain scale - at its 9 worst (0-10) Shoulder/Elbow Eval Shoulder Objective Measurements Shoulder ROM Left Shoulder ROM Pain Limitations Shoulder Abduction 170 Active Range of Motion (degrees) Shoulder Flexion 172 Active Range of Motion (degrees) Query Text: Shoulder External 95 Rotation Active Range of Motion ( degrees) Shoulder Internal 82 Rotation Active Range of Motion ( degrees) Shoulder MMT Shoulder Abduction 4- Good- Strength Grade Shoulder Flexion 4 Good Strength Grade Shoulder Horizontal 4- Good- Abduction Strength Grade Shoulder Horizontal 4 Good Adduction Strength Grade Shoulder External 4- Good- Rotation Strength Grade Shoulder Internal 4 Good Rotation Strength Grade Elbow Objective Measurements QuickDASH Activities Please rate your ability to do the following activities in the last week by selecting the number below the appropriate response. 1. Open a tight or Moderate difficulty new jar. 2. Do heavy Moderate difficulty floral decorator (e. g., wash bailon, floors). 3. Carry a shopping Mild difficulty bag or briefcase. 4. Wash your back. Mild difficulty 5. Use a knife to No difficulty cut food. 6. Recreational Severe difficulty activities in which you take some force or impact through your arm, shoulder, or hand (e.g., golf, hammering, tennis, etc.). 7. During the past Quite a bit week, to what extent has your arm, shoulder or hand problem interfered with your normal social activities with family, friends , neighbors or groups? 8. During the past Very limited week, were you limited in your work or other regular daily activites as a result of your arm, shoulder or hand problem? 9. Arm, shoulder or Severe hand pain. 10. Tingling (pins Severe and needles) in your arm, shoulder or hand. 11. During the past Severe difficulty week, how much difficulty have you had sleeping because of the pain in your arm, shoulder or hand? Quick DASH 35 OT Outpatient Assessment Impairments Problems/Impairments Impaired Strength,Impaired Endurance,Impaired Lifting, Impaired Household Care,Impaired Work Activities, Impaired Self Care/Self Management Prognosis Rehab Potential Innapropriate for Skilled Therapy Comment Recommend pt be referred to PT for cervical evaluation. Clinical Impression Consistent with No Diagnosis Outpatient Therapy Plan of Care Addendums This patient is a No candidate for social or vocational rehab ? Patient/Guardian Yes verbally acknowledges understanding of treatment program and consents to further treatment? Patient/Guardian Yes verbally acknowledges understanding of diagnosis, prognosis and goals for treatment? Eval Complexity OT Charge [id number] - Moderate Complexity PHYSICIAN CERTIFICATION: I certify the specified therapy services for Anna Darnell are required, authorized, and reviewed every 30 days.
== END ==
LOC: OT 08:43
PROVIDERS: Visit Provider Nurse Practitioner Family
DX: M25.512 Pain in left shoulder (principal); M54.2 Cervicalgia
CPT/HCPCS: 97166

== ENCOUNTER 2024-12-17 08:00 | Outpatient (RCR) | payer OTHER, SELFPAY ==
--- NOTE | 2024-12-11 09:05 | HMH.PTOPEV ---
PT Outpatient Evaluation Rehab PT Outpatient Evaluation Start: 12/10/24 09:01 Freq: Status: Active Protocol: Document 12/10/24 09:01 JESUS (Rec: 12/10/24 10:06 JESUS [id number]) E-signed By Eliane Nielsen, PT Outpatient Therapy Subjective History Subjective History Pt is a 44 y/o female who reports onset of left shoulder pain ~5 weeks ago. Pt reports initial L shoulder pain described as pressure that woke her up during the night. Pt denies known trauma or injury but does states she went to the gym and did rows 2 days prior. Pt reports she went and got a massage the day pain started with temporary improvement in symptoms; however, states pain gradually worsened over the next 2 -3 days with neck stiffness, muscle spasms and radiating pain down the left arm so she went to the ED. Pt states she was prescribed muscle relaxers, Toradol and Naproxen that she took without improvement in symptoms. Pt states she also did a follow-up with her PCP and was given a steroid injection and a steroid pack without noted improvement in symptoms. Pt states she then went to the chiropractor who took xrays of her neck and was told she had a decreased curve of her neck, denies known fractures. Pt also had a L shoulder xray without significant findings and a thoracic spine xray with findings of mild dextroscoliosis. Pt states she has gotten some relief from the chiropractor with treatments involving manipulation of the cervical and thoracic spine. Pt states she still attends the chiropractor 2x/week with her next appointment tomorrow . Pt reports continued left-sided neck stiffness with constant radiating pain down the left arm posteriorly that wraps around towards her thumb. Pt reports paresthesia of the LUE as well that varies in intensity . Pt reports pain/paresthesia seems aggravated by all movements and activities. Pt states she has to sleep on her back at night time now due to pain. Pt denies dizziness, visual changes, n/v or fevers. Pt denies further comorbidities to report. Work: [employer] Special tests: Bakody's sign New diagnosis of No cancer in past 12 months? Chief Complaint Pain Symptom Type Ache,Sharp,Dull,Burning,Numbness,Tingling Symptoms Relieved By Nothing Symptoms Aggravated Physical Activity,Lifting By Current Functional Lifting,Housework,Desk Work/Reading,Recreation Activity Limitations Symptom Description Constant but Variable Level of pain today 5 (0-10) Pain scale - at its 5 best (0-10) Pain scale - at its 8 worst (0-10) Cervical Eval Palpation Cervical Muscles L Upper Trapezius Cervical/Thoracic Tenderness Palpation Findings Flexibility Deficits Upper Trapezius (L) Moderate Tightness Muscle Length Levaetor Scapulae (L) Moderate Tightness Muscle Length Passive Joint Mobility Cervical PIVM Dec: L C5/6 L C6/7 L C7/T1 AROM Cervical Spine 45 Extension Active Range of Motion ( degrees) Cervical Spine 40 Flexion Active Range of Motion (degrees) Cervical Spine Right 40 Lateral Flexion Active Range of Motion (degrees) Cervical Spine Left 40 Lateral Flexion Active Range of Motion (degrees) Cervical Spine Right 70 Rotation Active Range of Motion ( degrees) Cervical Spine Left 70 Rotation Active Range of Motion ( degrees) Altered Sensation Bilateral Upper extremity C4 Dermatomes Comment decreased light touch sensation L compared to R Special Test C-Spine Foraminal Positive Left Compression ( [place]) Test C-spine Verterbral Left P/A Sagle Accessory Movements that Elicit Symptoms C-Spine Foraminal Positive Distraction Test C-Spine Compression Positive Left Test Shoulder Abduction Positive Left Relief Test Shoulder/Elbow Eval Shoulder Objective Measurements Shoulder MMT Bilateral Lower Trapezius 4- Good- Strength Grade Middle Trapezius 4- Good- Strength Grade Rhomboids Strength 4- Good- Grade Shoulder Abduction 4+ Good+ Strength Grade Shoulder Extension 4+ Good+ Strength Grade Shoulder Flexion 4+ Good+ Strength Grade Elbow Objective Measurements Neck Disability Index Neck Disability Index Section 1: Pain The pain is moderate at the moment Intensity Section 2: Personal I can look after myself normally but it causes extra Care (washing, pain dressing, etc.) Section 3: Lifting I can lift heavy weights but it gives extra pain Section 4: Reading I can read as much as I want to with slight pain in my neck Section 5: Headaches I have slight headaches, which come infrequently Section 6: I have a fair degree of difficulty in concentrating Concentration when I want to Section 7: Work I can do most of my usual work, but no more Section 8: Driving I can drive my car as long as I want with moderate pain in my neck Section 9: Sleeping My sleep is midly disturbed (1-2 hrs sleepless) Section 10: I can hardly do any recreation activities because of Recreation pain in my neck NDI Score 18 Outpatient Therapy Assessment Impairments Problems/ Palpation Tenderness,Impaired Range of Motion,Impaired Impairmments Strength,Impaired Lifting,Impaired Household Care, Impaired Recreational Activities,Impaired Work Activities,Impaired Desk/Computer Activities,Subjective C/O Pain,Impaired Self Care/Self Management Prognosis Rehab Potential Good Clinical Impression Consistent with Yes Diagnosis Consistent with cervical pain with radiating pain Short Term Goals Number of Weeks 3 Decrease Subjective Yes: Improve pain at best to 0-2/10 to improve overall C/O Pain QOL Improve Self Care/ Yes Self Management Patient to be Ind w/ Yes HEP Assisted Goals Number of Weeks 6 Decreased Palpation Yes: 0-1/4 TTP of C5-C7 and L cervical musculature Tenderness Increase Range of Yes: Improve cervical AROM to WNL Motion Increase Strength Yes: Improve UE strength to 4+-5/5 grossly to assist with funciton Return to Yes: with pain 4/10 or less to improve overall QOL Recreational Activities Improve Tolerance to Yes: report ability to work a full shift with pain 4/10 Work Activities or less Improve Neck Yes: Improve score to 15 or less to improve overall QOL Disability Index Score Decrease Subjective Yes: Improve pain at worst to 4/10 to improve overall C/O Pain QOL Outpatient Therapy Plan of Care Treatment Plan May Include Therapeutic Exercise Yes Including Home Exercise Program Manual Therapy Yes Techniques Neuromuscular Re- Yes education Therapeutic Yes Activities to Return to Previous Functional/Work Level ADL/Self Care Yes Education Mechanical Traction Yes Dry Needling Yes Thermal Modalities Yes Electrical Yes Stimulation Ultrasound/ Yes Phonophoresis Iontophoresis Yes Massage Yes Group Therapy for Yes Medicare Eval/Re-Eval Yes Frequency Times per week 2 Duration Number of Weeks 4-6 Addendums This patient is a No candidate for social or vocational rehab ? Patient/Guardian Yes verbally acknowledges understanding of treatment program and consents to further treatment? Patient/Guardian Yes verbally acknowledges understanding of diagnosis, prognosis and goals for treatment? Eval Complexity PT Charges 89970 - Low Complexity PHYSICIAN CERTIFICATION: I certify the specified therapy services for Anna Darnell are required, authorized, and reviewed every 30 days.
== END 2024-12-17 23:59 | disposition home or self-care (01) ==
LOC: PT 08:00
PROVIDERS: Visit Provider Nurse Practitioner Family
DX: M25.512 Pain in left shoulder (principal); M54.2 Cervicalgia
CPT/HCPCS: 97012; 97014; 97140; 97161; G0283

== ENCOUNTER 2024-12-20 15:41 | Outpatient (CLI) | payer OTHER, SELFPAY ==
--- NOTE | 2024-12-20 15:45 | MR_ITS ---
FINAL REPORT TECHNIQUE: Multiplanar MR without contrast CLINICAL HISTORY: cervicalgia, left upper extremity numbness FINDINGS: Limited images of the posterior fossa are unremarkable. There is straightening of the cervical cord without subluxation. Cervical spinal cord shows normal signal and contour. C2-3: Unremarkable C3-4: Unremarkable C4-5: Minimal annular disc bulge. Tiny central disc protrusion. C5-6: Mild annular disc bulge without canal stenosis. C6-7: Moderate annular disc bulge. Moderate central disc protrusion spanning the entire width of the spinal canal. Mild cord compression without edema. Moderate canal stenosis with mild right and severe left neuroforaminal narrowing. C7-T1: Unremarkable IMPRESSION: Significant disc protrusions with canal stenosis and cord compression. Reviewed, Interpreted and Dictated by Chava Forrester MD Transcribed by Jocelynn Mcrae Authenticated and [facility]
== END 2024-12-20 23:59 | disposition home or self-care (01) ==
PROVIDERS: PCP Nurse Practitioner Family; Visit Provider Nurse Practitioner Family
DX: M50.022 Cervical disc disorder at C5-C6 level with myelopathy (principal); M50.023 Cervical disc disorder at C6-C7 level with myelopathy; M48.02 Spinal stenosis, cervical region
CPT/HCPCS: 72141

== ENCOUNTER → 2025-01-08 10:00 | Outpatient (RCR) | payer OTHER, SELFPAY | LOC: PT 12-24 08:59 | PROVIDERS: Visit Provider Nurse Practitioner Family | DX: M25.512 Pain in left shoulder (principal); M54.2 Cervicalgia | CPT/HCPCS: 97014; 97110; 97140; G0283 ==

== ENCOUNTER 2025-04-25 11:00 | Outpatient (RCR) | payer OTHER, SELFPAY | END 2025-04-25 23:59 | disposition home or self-care (01) | LOC: PT 11:00 | PROVIDERS: PCP Nurse Practitioner Family; Visit Provider Orthopaedic Surgery | DX: M48.02 Spinal stenosis, cervical region (principal) | CPT/HCPCS: 97110; 97140; 97161 ==

== ENCOUNTER 2025-05-16 14:00 | Outpatient (RCR) | payer OTHER, SELFPAY | END 2025-05-16 23:59 | disposition home or self-care (01) | LOC: PT 14:00 | PROVIDERS: PCP Nurse Practitioner Family; Visit Provider Orthopaedic Surgery | DX: M48.02 Spinal stenosis, cervical region (principal) | CPT/HCPCS: 97110; 97140 ==